=== PATIENT | female | born 1955 | race Caucasian/White ===

== ENCOUNTER 2018-02-25 23:01 | Emergency (ER) | payer BC ==
[~2018-02-25] VITALS: Ht 160 cm; Wt 82.5 kg
[~2018-02-25 23:01] MED LIST: ACIPHEX20 MG PO; AMITRIPTYLINE H10 MG PO; AMOXICILLIN875 MG PO; ASPIRIN500 MG PO; AUGMENTIN875 MG NG; BACTRIM,SEPT1 TABLET PO; BENICAR5 MG PO; CENTRUM FLAVO100 MCG PO; CENTRUM SILVER1 EAC4 PO; CLARITIN10 M4 PO; EXCEDRIN MIGRA1 EAC3 PO; FLONASE ALLERG9.9 ML BOTH NARES; FLONASE16 G1 BOTH NARES; FLOVENT 22120 INHALA IH; Flonase BOTH NARES; MOTRIN IB200 MG PO; OMEPRAZOLE40 M1 PO; PROTONIX40 MG PO; RYBIX ODT50 MG PO; SALINE NASAL SP45 ML BOTH NARES; SINGULAIR10 MG PO; TRAMADOL HCL50 MG PO; TYLENOL ARTHRI650 MG PO; TYLENOL REGULA325 MG PO; TYLENOL/CODE1 TABLET PO; Ultram PO; VENTOLIN HFA18 GM IH; VICKS VAPORUB O50 GM TP; ZANTAC150 MG PO; ZYRTEC10 M3 PO
[2018-02-26] MEDS ORDERED: ULTRAM50 MG PO (00:20)
[2018-02-26 00:56] VITALS: BP 165/86
== END 2018-02-26 00:57 | disposition home or self-care (01) ==
LOC: EME 23:01
DX: S42.291A Other displaced fracture of upper end of right humerus, initial encounter for closed fracture (principal); S42.251A Displaced fracture of greater tuberosity of right humerus, initial encounter for closed fracture; M25.521 Pain in right elbow; W01.0XXA Fall on same level from slipping, tripping and stumbling without subsequent striking against object, initial encounter; J45.909 Unspecified asthma, uncomplicated
CPT/HCPCS: 73030; 99281; 99283